=== PATIENT | female | born 1940 | race Caucasian/White ===

== ENCOUNTER 2023-04-25 06:41 | Day surgery (SDC) | payer MEDICARE, OTHER, SELFPAY ==
[2023-04-25 11:45] VITALS: BP 133/81
[2023-04-25 11:53] VITALS: BMI 22.3
[2023-04-25 11:54] VITALS: BMI 22.3
[2023-04-25 14:15] VITALS: BP 139/74
[2023-04-25 14:30] VITALS: BP 149/73
[2023-04-25 14:45] VITALS: BP 112/77
[2023-04-25 15:00] VITALS: BP 106/56
== END 2023-04-25 15:20 | disposition home or self-care (01) ==
LOC: SDS 06:41
PROVIDERS: ATTENDING PHYSICIAN Internal Medicine Gastroenterology
DX: K63.5 Polyp of colon (principal); K63.89 Other specified diseases of intestine; K57.30 Diverticulosis of large intestine without perforation or abscess without bleeding; Q43.8 Other specified congenital malformations of intestine; K64.0 First degree hemorrhoids
CPT/HCPCS: 45390; 88305

== ENCOUNTER → 2023-07-31 10:06 | Outpatient (REF) | payer MEDICARE, OTHER, SELFPAY ==
[2023-07-31 10:55] LABS: % Basophils 0.7 % (0-2); % Eosinophils 0.9 % (0-6); % Immature Granulocytes 0.3 % (0-0.5); % Lymphocytes 21.8 % (20.5-51.1); % Monocytes 9.7 % (1.7-9.3); % Neutrophils 66.6 % (42.2-75.2); Absolute Basophils 0.1 10^3/uL (0-0.2); Absolute Eosinophils 0.1 10^3/uL (0-0.7); Absolute Lymphocytes 1.5 10^3/uL (1.2-3.4); Absolute Monocytes 0.7 10^3/uL (0.1-0.6); Absolute Neutrophils 4.5 10^3/uL (1.4-6.5); Hematocrit 39.8 % (37.0-47.0); Hemoglobin 13.1 g/dL (12.0-16.0); Mean Corp Hgb Conc. 32.9 g/dL (33.0-37.0); Mean Corpuscular Hgb 30.4 pg (27.0-31.0); Mean Corpuscular Volume 92.3 fL (81.0-99.0); Mean Platelet Volume 9.8 fL (7.4-10.4); Nucleated Red Blood Cells % 0 %; Platelet Count 211 10^3/uL (130-400); Red Blood Cell Count 4.31 10^6/uL (4.20-5.40); White Blood Cell Count 6.8 10^3/uL (4.8-10.8)
[2023-07-31 12:02] LABS: TSH Reflex To Free T4 1.13 uIU/ml (0.47-4.68)
[2023-07-31 12:37] LABS: Folate > 20.0 ng/ml (2.76-20)
[2023-07-31 13:50] LABS: Vitamin B12 419 pg/ml (239-931)
[2023-08-01 15:50] LABS: Lyme Antibody Screen, EIA Equivocal (Negative)
[2023-08-03 17:43] LABS: Lyme Ab Western Blot IgG Positive (Negative); Lyme Ab Western Blot IgM Negative (Negative)
== END ==
LOC: REG 10:06
PROVIDERS: ATTENDING PHYSICIAN Nurse Practitioner Adult Health
DX: R53.83 Other fatigue (principal); Z79.899 Other long term (current) drug therapy
CPT/HCPCS: 36415; 82607; 82746; 84443; 85025; 86617; 86618

== ENCOUNTER 2023-08-01 14:59 | Outpatient (RCR) | payer MEDICARE, OTHER, SELFPAY | END 2023-08-01 23:59 | disposition home or self-care (01) | LOC: RPT 14:59 | PROVIDERS: ATTENDING PHYSICIAN Obstetrics & Gynecology; FAMILY PHYSICIAN Family Medicine | DX: N81.6 Rectocele (principal); N39.0 Urinary tract infection, site not specified | CPT/HCPCS: 97161; 97530 ==

== ENCOUNTER → 2023-08-21 11:43 | Outpatient (REF) | payer MEDICARE, OTHER, SELFPAY | LOC: WDC 11:43 | PROVIDERS: ATTENDING PHYSICIAN Obstetrics & Gynecology Gynecology; FAMILY PHYSICIAN Family Medicine | DX: Z12.31 Encounter for screening mammogram for malignant neoplasm of breast (principal) | CPT/HCPCS: 77063; 77067 ==

== ENCOUNTER 2023-09-05 12:09 | Outpatient (RCR) | payer MEDICARE, OTHER, SELFPAY | END 2023-09-05 23:59 | disposition home or self-care (01) | LOC: RPT 12:09 | PROVIDERS: ATTENDING PHYSICIAN Obstetrics & Gynecology; FAMILY PHYSICIAN Family Medicine | DX: N81.6 Rectocele (principal); N39.0 Urinary tract infection, site not specified; Z73.6 Limitation of activities due to disability | CPT/HCPCS: 97110; 97112; 97530 ==

== ENCOUNTER 2023-10-03 10:58 | Outpatient (RCR) | payer MEDICARE, OTHER, SELFPAY | END 2023-10-03 23:59 | disposition home or self-care (01) | LOC: RPT 10:58 | PROVIDERS: ATTENDING PHYSICIAN Obstetrics & Gynecology; FAMILY PHYSICIAN Family Medicine | DX: N81.6 Rectocele (principal); N39.0 Urinary tract infection, site not specified; Z73.6 Limitation of activities due to disability | CPT/HCPCS: 97110; 97112 ==

== ENCOUNTER 2023-11-05 12:03 | Outpatient (RCR) | payer MEDICARE, OTHER, SELFPAY | END 2023-11-05 23:59 | disposition home or self-care (01) | LOC: RPT 12:03 | PROVIDERS: ATTENDING PHYSICIAN Obstetrics & Gynecology; FAMILY PHYSICIAN Family Medicine | DX: N81.6 Rectocele (principal); Z73.6 Limitation of activities due to disability; K58.9 Irritable bowel syndrome, unspecified; Z87.440 Personal history of urinary (tract) infections | CPT/HCPCS: 97110; 97112 ==

== ENCOUNTER 2023-11-12 12:06 | Outpatient (RCR) | payer MEDICARE, OTHER, SELFPAY | END 2023-11-12 23:59 | disposition home or self-care (01) | LOC: RPT 12:06 | PROVIDERS: ATTENDING PHYSICIAN Obstetrics & Gynecology; FAMILY PHYSICIAN Family Medicine | DX: N81.6 Rectocele (principal); Z73.6 Limitation of activities due to disability | CPT/HCPCS: 97110; 97112 ==

== ENCOUNTER → 2023-12-16 16:05 | Outpatient (REF) | payer MEDICARE, OTHER, SELFPAY ==
[2023-12-16 17:21] LABS: Albumin 4.3 g/dl (3.5-5.0); Carbon Dioxide 29 mmol/L (22-30); Total Protein 6.8 g/dl (6.3-8.2); eGFR > 60.00
[2023-12-16 17:31] LABS: ALT (SGPT) 23 U/L (0-35); AST (SGOT) 29 U/L (14-36); Alkaline Phosphatase 50 U/L (38-126); Blood Urea Nitrogen 26 mg/dl (7-17); Calcium 9.5 mg/dl (8.4-10.2); Chloride 103 mmol/L (98-107); Glucose 78 mg/dl (70-99); Potassium 4.6 mmol/L (3.5-5.1); Sodium 141 mmol/L (135-145); Total Bilirubin 0.4 mg/dl (0.2-1.3)
[2023-12-16 17:46] LABS: Vitamin D, 25-OH*** 49.3 ng/mL (30-80)
== END ==
LOC: REG 16:05
PROVIDERS: ATTENDING PHYSICIAN Internal Medicine; FAMILY PHYSICIAN Student in an Organized Health Care Education/Training Program
DX: M81.0 Age-related osteoporosis without current pathological fracture (principal); Z51.81 Encounter for therapeutic drug level monitoring
CPT/HCPCS: 36415; 80053; 82306

== ENCOUNTER → 2024-01-15 08:50 | Outpatient (REF) | payer MEDICARE, OTHER, SELFPAY | LOC: RAD 08:50 | PROVIDERS: ATTENDING PHYSICIAN Internal Medicine; FAMILY PHYSICIAN Student in an Organized Health Care Education/Training Program | DX: M81.0 Age-related osteoporosis without current pathological fracture (principal); Z51.81 Encounter for therapeutic drug level monitoring | CPT/HCPCS: 77080 ==

== ENCOUNTER → 2024-03-17 11:06 | Outpatient (REF) | payer MEDICARE, OTHER, SELFPAY | LOC: RCS 11:06 | PROVIDERS: ATTENDING PHYSICIAN Internal Medicine Cardiovascular Disease; FAMILY PHYSICIAN Student in an Organized Health Care Education/Training Program | DX: I34.0 Nonrheumatic mitral (valve) insufficiency (principal); I35.1 Nonrheumatic aortic (valve) insufficiency | CPT/HCPCS: 93306 ==

== ENCOUNTER → 2024-08-06 11:08 | Outpatient (REF) | payer MEDICARE, OTHER, SELFPAY | LOC: MRI 3T 11:08 | PROVIDERS: ATTENDING PHYSICIAN Student in an Organized Health Care Education/Training Program | DX: R26.89 Other abnormalities of gait and mobility (principal); R41.3 Other amnesia | CPT/HCPCS: 70551 ==

== ENCOUNTER → 2024-08-20 14:12 | Outpatient (REF) | payer MEDICARE, OTHER, SELFPAY ==
[2024-08-20 15:33] LABS: Hematocrit 31.3 % (37.0-47.0); Hemoglobin 10.4 g/dL (12.0-16.0); Mean Corp Hgb Conc. 33.2 g/dL (33.0-37.0); Mean Corpuscular Volume 89.4 fL (81.0-99.0); Nucleated Red Blood Cells % 0 %; Platelet Count 309 10^3/uL (130-400); Red Cell Dist. Width 13.4 % (11.5-14.5)
[2024-08-20 15:56] LABS: ALT (SGPT) 17 U/L (0-35); AST (SGOT) 21 U/L (14-36); Albumin 3.9 g/dl (3.5-5.0); Alkaline Phosphatase 57 U/L (38-126); Blood Urea Nitrogen 20 mg/dl (7-17); Calcium 9.4 mg/dl (8.4-10.2); Carbon Dioxide 26 mmol/L (22-30); Chloride 107 mmol/L (98-107); Glucose 85 mg/dl (70-99); HDL Cholesterol 82 mg/dl; LDL Cholesterol, Calculated 45 mg/dl; Potassium 3.8 mmol/L (3.5-5.1); Sodium 139 mmol/L (135-145); Total Protein 6.5 g/dl (6.3-8.2); Very Low Density Lipoprotein 10 mg/dl (0-30); eGFR > 60.00
[2024-08-20 16:13] LABS: Vitamin D, 25-OH*** 53.4 ng/mL (30-80)
[2024-08-20 17:03] LABS: Folate > 20.0 ng/ml (2.76-20); Vitamin B12 945 pg/ml (239-931)
[2024-08-21 11:28] LABS: Syphilis/T. pallidum Ab Reflex Negative (Negative)
[2024-08-26 10:06] LABS: Albumin 3.53 g/dL (3.75-5.01); SPEP IFE Reflex Not Done; Total Protein-Electrophoresis 6.5 g/dL (6.3-8.2)
== END ==
LOC: WDC 14:12
PROVIDERS: ATTENDING PHYSICIAN Obstetrics & Gynecology Gynecology; FAMILY PHYSICIAN Student in an Organized Health Care Education/Training Program; OTHER PHYSICIAN Internal Medicine; OTHER PHYSICIAN Internal Medicine Cardiovascular Disease
DX: Z12.31 Encounter for screening mammogram for malignant neoplasm of breast (principal); I70.0 Atherosclerosis of aorta; I10 Essential (primary) hypertension; I34.0 Nonrheumatic mitral (valve) insufficiency; R26.89 Other abnormalities of gait and mobility; R41.3 Other amnesia; E78.00 Pure hypercholesterolemia, unspecified; Z87.898 Personal history of other specified conditions; M81.0 Age-related osteoporosis without current pathological fracture
CPT/HCPCS: 36415; 77063; 77067; 80053; 80061; 82306; 82607; 82746; 84155; 84165; 84443; 85025; 86780

== ENCOUNTER 2024-08-23 11:14 | Emergency (ER) | payer MEDICARE, OTHER, SELFPAY ==
[2024-08-23 11:21] VITALS: BP 183/114
[2024-08-23 11:47] LABS: Hematocrit 34.5 % (37.0-47.0); Hemoglobin 11.3 g/dL (12.0-16.0); Mean Corp Hgb Conc. 32.8 g/dL (33.0-37.0); Mean Corpuscular Volume 90.3 fL (81.0-99.0); Nucleated Red Blood Cells % 0 %; Platelet Count 385 10^3/uL (130-400); Red Cell Dist. Width 13.5 % (11.5-14.5)
[2024-08-23 12:14] LABS: ALT (SGPT) 32 U/L (0-35); AST (SGOT) 40 U/L (14-36); Albumin 4.1 g/dl (3.5-5.0); Alkaline Phosphatase 53 U/L (38-126); Blood Urea Nitrogen 17 mg/dl (7-17); Calcium 9.8 mg/dl (8.4-10.2); Carbon Dioxide 29 mmol/L (22-30); Chloride 110 mmol/L (98-107); Glucose 112 mg/dl (70-99); Lipase 76 U/L (23-300); Potassium 3.7 mmol/L (3.5-5.1); Sodium 144 mmol/L (135-145); Total Protein 7.0 g/dl (6.3-8.2); eGFR > 60.00
[2024-08-23 12:52] VITALS: BMI 25.1
[2024-08-23 13:09] VITALS: BP 171/92
--- NOTE | 2024-08-23 13:09 | ED.GENMED ---
History of Present Illness
General
Chief Complaint: Chest Pain
Source: patient
Exam Limitations: none
Time Seen by Provider: 08/23/24 12:31
Nursing documentation reviewed up to this point in time: agreed with
History of Present Illness
History of Present Illness:
84-year-old female COPD no longer smoking uses inhalers, ex drinker no longer drinking a week or so of chest pain shortness of breath after a workout at the gym does not typically get a lot of chest pains, describes a pressure in her chest with
cough body aches, pain to go down her arm,
Past History
Past History
ED Past Medical History: COPD and HTN
Social History
Tobacco: Former smoker
Alcohol: Former
Drug: None
Living: with family
Employment: Employed
Review of Systems
Review of Systems
All Other Systems: Not applicable
Constitutional: Reports fatigue; Denies fever
Respiratory: Reports cough and trouble breathing
Cardiac: Reports chest pain; Denies diaphoresis, palpitations or syncope
ABD/GI: Reports no symptoms
: Reports no symptoms
Musculoskeletal: Reports no symptoms
Phy Exam
Physical Exam
Physical Exam:
Physical Exam
General: Nontoxic 84
Neck: supple.
Heart: s1/s2 regular rate and rhythm, no murmur. equal radial pulses.
Lungs: Diminished breath sounds bilateral
Abdomen: Nontender
Neuro: alert and oriented. no focal neurological deficits
Skin: no rash
Psychiatric: well kept. interactive and cooperative
Extremities: Trace edema
Scores
Heart Score for Chest Pain Patients
STEMI patient?: No
History: Moderately Suspicious
ECG: Normal
Age: >/= 65 years
Risk Factors: 1 or 2 Risk Factors
Troponin: </= Normal Limit
Heart Score for Chest Pain Patients: 4
Heart Score Risk: 20.3% MACE over next 6 weeks
Course
Orders/Labs/Results
Orders:
Orders
08/23/24 11:20
ECG [Electrocardiogram (*1)] Urgent
Reason for Study: Chest Pain
EKG- Treatment ONCE
08/23/24 11:34
Complete Blood Count/With Diff Urgent
Comprehensive Metabolic Panel Urgent
Lipase Urgent
08/23/24 12:30
Add On- LAB Urgent
Tests Added?: pBNP
08/23/24 12:31
CR Chest - 2 Views Urgent
Comment:
Reason For Exam: cp sob
08/23/24 12:51
NT-proBNP Urgent
Troponin I Urgent
08/23/24 12:54
Ipratropium/Albuterol Sulfate [Duoneb] 3 ml INH R NOW STA
08/23/24 13:44
EKG- Treatment ONCE
08/23/24 14:22
Acetaminophen [Tylenol] 650 mg PO NOW STA
Ketorolac [Toradol] 15 mg IV NOW STA
08/23/24 14:47
Dexamethasone Sod Phosphate [Decadron] 6 mg IV NOW STA
08/23/24 15:00
Electrocardiogram (*1) Urgent
Reason for Study: Chest Pain
08/23/24 15:20
Troponin I Urgent
08/23/24 16:50
Doxycycline [Vibramycin] 100 mg PO NOW STA
08/25/24 15:00
Troponin I Urgent
Abnormal Lab Results
08/23/24
11:34
RBC 3.82 L 10^6/uL
(4.20-5.40)
Hgb 11.3 L g/dL
(12.0-16.0)
Hct 34.5 L %
(37.0-47.0)
MCHC 32.8 L g/dL
(33.0-37.0)
Absolute Monos (auto) 1.0 H 10^3/uL
(0.1-0.6)
Lymphocytes % 17.2 L %
(20.5-51.1)
Monocytes % 11.1 H %
(1.7-9.3)
Chloride 110 H mmol/L
(98-107)
Glucose 112 H mg/dl
(70-99)
AST 40 H U/L
(14-36)
08/23/24 11:34
08/23/24 11:34
Vital Signs
Initial and Last Documented VS:
Initial Vital Signs
Temp Pulse Resp BP Pulse Ox
97.3 F 113 20 183/114 98
08/23/24 11:21 08/23/24 11:21 08/23/24 11:21 08/23/24 11:21 08/23/24 11:21
Last Documented Vital Signs
Temp Pulse Resp BP Pulse Ox
97.3 F 98 13 112/72 96
08/23/24 11:21 08/23/24 16:00 08/23/24 16:00 08/23/24 16:00 08/23/24 16:00
MDM/Problems Addressed
Differential Diagnosis Includes:
COPD heart failure pneumonia ACS musculoskeletal infectious
MDM/Problems Addressed:
Chest pain shortness of
Chronic conditions affecting care: HTN and COPD
Acute Exacerbation and/or Progression of Chronic Illness: HTN
*Pulse Oximetry
SaO2: 98
Oxygen Mode of Delivery: Room air
Patient hypoxic: no
*EKG
Interpreted by ED Provider?: Yes
Interpretation: abnormal
Comparison EKG: no comparison EKG present
Heart Rate: 78
Rate: normal
Rhythm: sinus
Ischemia: non-specific ST changes
*Type Caster Interpretation
Rate: normal
Interpretation: normal
Heart Rate: 78
Rhythm: sinus
*Critical Care Note
Total Time (30-74mins, 75-104mins- exclusive of procedures): Not Applicable
Update Note
Update Note:
145 labs chest x-ray noted will repeat
Repeat troponin noted patient feeling better does feel warm now she may be spiking a fever, will discharge with antibiotics steroids, albuterol
ED Attending Note
-
Portions of this chart may have been created with voice recognition software.� Occasional wrong word or��sound alike� substitutions may have occurred due to the inherent limitations of voice recognition software.
Discharge Plan
Departure
Patient Disposition: Home (Routine Discharge)
Date of Disposition: 08/23/24
Time of Disposition: 16:51
Patient with high blood pressure during this ER visit?: No
Condition: Good
Covid-19: Not Applicable
Discharge Problem:
Bronchitis
Instructions: Chronic obstructive pulmonary disease (COPD) - Discharge instructions, Bronchitis in adults - ED discharge instructions
Prescriptions:
New
methylprednisolone [Medrol (Braxton)] 4 mg tablets,dose pack
See Rx Instructions .ROUTE .COMPLEX Qty: 21 0RF
Rx Instructions:
for 6 days
doxycycline hyclate 100 mg tablet
100 mg PO BID 10 Days Qty: 20 0RF
albuterol sulfate [Ventolin HFA] 90 mcg/actuation HFA aerosol inhaler
2 puff inhalation Q6H PRN (Reason: shortness of breath or wheezing) Qty: 8.5 2RF
No Action
atorvastatin [Lipitor] 10 mg Tablet
10 mg PO DAILY
methylphenidate HCl [Ritalin] 10 mg Tablet
10 mg PO DAILY
lisinopril 10 mg Tablet
10 mg PO DAILY
escitalopram oxalate [Lexapro] 20 mg Tablet
20 mg PO DAILY
omeprazole 20 mg Tablet,Delayed Release (Dr/Ec)
20 mg PO DAILY
gabapentin
150 mg PO DAILY
Referrals:
Koellhoffer,Rachell, MD [Family Provider, Internal Medicine] - Tomorrow
Interventions
Interventions:
ED- Cardiac Assessment Last Done: 08/23/24 13:15
Discharge Date and Time
Print Language: BULGARIAN
[2024-08-23] MEDS: DUONEB 3 ML INH (13:11)
[2024-08-23 13:34] LABS: Troponin I < 0.012 ng/ml
[2024-08-23 14:00] VITALS: BP 145/79
[2024-08-23] MEDS: TYLENOL 650 MG PO (14:45)
[2024-08-23] MEDS: TORADOL 15 MG IV (14:45)
[2024-08-23 15:00] VITALS: BP 141/80
[2024-08-23] MEDS: DECADRON 6 MG IV (15:16)
[2024-08-23 15:51] LABS: Troponin I < 0.012 ng/ml
[2024-08-23 16:00] VITALS: BP 112/72
[2024-08-23] MEDS: VIBRAMYCIN 100 MG PO (16:58)
== END 2024-08-23 17:16 | disposition home or self-care (01) ==
LOC: EMR 11:14
PROVIDERS: Emergency Medicine; EMERGENCY PHYSICIAN Emergency Medicine; FAMILY PHYSICIAN Student in an Organized Health Care Education/Training Program
DX: J40 Bronchitis, not specified as acute or chronic (principal); R07.9 Chest pain, unspecified; J44.9 Chronic obstructive pulmonary disease, unspecified
CPT/HCPCS: 99285; 96374; 96375; 94640; 71046; 80053; 83690; 83880; 84484; 85025; 93005

== ENCOUNTER → 2024-10-16 12:40 | Outpatient (REF) | payer MEDICARE, OTHER, SELFPAY | LOC: RCS 12:40 | PROVIDERS: ATTENDING PHYSICIAN Student in an Organized Health Care Education/Training Program | DX: R06.09 Other forms of dyspnea (principal) | CPT/HCPCS: 93017; 93350 ==

== ENCOUNTER → 2024-10-20 13:10 | Outpatient (REF) | payer MEDICARE, OTHER, SELFPAY | LOC: HWRAD 13:10 | PROVIDERS: ATTENDING PHYSICIAN Internal Medicine Critical Care Medicine; FAMILY PHYSICIAN Student in an Organized Health Care Education/Training Program | DX: R91.8 Other nonspecific abnormal finding of lung field (principal) | CPT/HCPCS: 71250 ==

== ENCOUNTER → 2024-11-03 14:49 | Outpatient (REF) | payer MEDICARE, OTHER, SELFPAY | LOC: HWRCS 14:49 | PROVIDERS: ATTENDING PHYSICIAN Nurse Practitioner; FAMILY PHYSICIAN Student in an Organized Health Care Education/Training Program | DX: R06.02 Shortness of breath (principal); I34.0 Nonrheumatic mitral (valve) insufficiency | CPT/HCPCS: 93306 ==

== ENCOUNTER → 2024-12-30 08:53 | Outpatient (REF) | payer MEDICARE, OTHER, SELFPAY ==
[2024-12-30 09:27] LABS: Hematocrit 31.8 % (37.0-47.0); Hemoglobin 9.6 g/dL (12.0-16.0); Mean Corp Hgb Conc. 30.2 g/dL (33.0-37.0); Mean Corpuscular Volume 77.4 fL (81.0-99.0); Nucleated Red Blood Cells % 0 %; Platelet Count 342 10^3/uL (130-400); Red Cell Dist. Width 19.2 % (11.5-14.5)
[2024-12-30 09:56] LABS: Iron 36 ug/dl (37-170)
[2024-12-30 10:59] LABS: Ferritin 6.5 ng/ml (11.1-264.0)
== END ==
LOC: REG 08:53
PROVIDERS: ATTENDING PHYSICIAN Internal Medicine; FAMILY PHYSICIAN Student in an Organized Health Care Education/Training Program
DX: D64.9 Anemia, unspecified (principal); R15.9 Full incontinence of feces
CPT/HCPCS: 36415; 82728; 83540; 85025

== ENCOUNTER 2025-02-09 09:14 | Outpatient (RCR) | payer MEDICARE, OTHER, SELFPAY ==
[2025-01-19 10:10] VITALS: BP 142/82
[2025-01-19] MEDS: VENOFER 110 MG IV (10:29)
[2025-01-19 11:50] VITALS: BP 133/78
[2025-01-26] MEDS: VENOFER 110 MG IV (11:26)
[2025-01-26 11:32] VITALS: BP 145/85
[2025-01-26 12:29] VITALS: BP 139/74
[2025-02-02] MEDS: VENOFER 110 MG IV (11:14)
[2025-02-02 11:21] VITALS: BP 160/85
[2025-02-02 12:43] VITALS: BP 135/87
[2025-02-09 09:45] VITALS: BP 159/85
[2025-02-09] MEDS: VENOFER 110 MG IV (10:10)
[2025-02-09 11:20] VITALS: BP 141/70
== END 2025-02-10 09:26 | disposition home or self-care (01) ==
LOC: OID 09:14
PROVIDERS: ATTENDING PHYSICIAN Internal Medicine
DX: D50.9 Iron deficiency anemia, unspecified (principal); K92.1 Melena; K64.9 Unspecified hemorrhoids
CPT/HCPCS: 96365; J1756